=== PATIENT | female | born 1940 | race Caucasian/White ===

== ENCOUNTER 2020-06-19 09:05 | Day surgery (SDC) | payer MEDICARE ==
[2020-06-19] MEDS ORDERED: BUPIVACAINE 0.5% VIAL IJ ONE (09:06)
[2020-06-19] MEDS ORDERED: Depo-Medrol 40 MG/ML IM ONE (09:06)
[2020-06-19] MEDS ORDERED: Ketamine HCl 50 MG/ML ONE (10:09)
[2020-06-19] MEDS ORDERED: DIPRIVAN 200 MG/20 ML IV ONE (10:09)
--- NOTE | 2020-06-19 11:12 | XRAY ---
Indication: Left hip injection. Intraoperative fluoroscopy was provided for 10 seconds. Single digital spot image submitted for interpretation demonstrates needle tip projecting just lateral to the left greater trochanter. Small amount of contrast injected for needle tip placement. Correlate with intraoperative findings/report. Incidental incompletely visualized total hip arthroplasty
--- NOTE | 2020-06-19 11:12 | XRAY ---
Indication: Right hip injection. Intraoperative fluoroscopy was provided for 9 seconds. Single digital spot image submitted for interpretation demonstrates needle tip projecting just lateral to the right greater trochanter. Small amount of contrast injected for needle tip placement. Correlate with intraoperative findings/report. Incidental incompletely visualized total hip arthroplasty
--- NOTE | 2020-06-19 11:12 | XRAY ---
9 seconds fluoroscopy time in surgery for right hip greater trochanter bursa injection.
--- NOTE | 2020-06-19 11:12 | XRAY ---
10 seconds fluoroscopy time in surgery for left hip greater trochanter bursa injection.
[2020-06-19] MEDS ORDERED: Lactated Ringers 1,000 ML IV ONE (15:14)
== END 2020-06-19 10:36 | disposition home or self-care (01) ==
LOC: SDC-PAIN 09:05
PROVIDERS: ATTEND Psychiatry & Neurology Pain Medicine
DX: M70.62 Trochanteric bursitis, left hip (principal); M70.61 Trochanteric bursitis, right hip; E11.9 Type 2 diabetes mellitus without complications; I10 Essential (primary) hypertension; G25.81 Restless legs syndrome; K44.9 Diaphragmatic hernia without obstruction or gangrene; Z79.899 Other long term (current) drug therapy
CPT/HCPCS: 20610; 73501; 77002; 82947; 82962; 99100; J1030; J2704; Q9966